=== PATIENT | female | born 1985 | race Caucasian/White ===

== ENCOUNTER 2021-07-01 09:52 | Emergency (ER) | payer MEDICAID, SELFPAY ==
[2021-07-01] VITALS (7 sets, daily range): BP systolic 92–113; BP diastolic 57–64; PULSE 67–90; RESP 15–19; TEMP 36.7; O2SAT 95–100; BMI 24.2
--- NOTE | 2021-07-01 10:45 | W.ED.ABDPA2 ---
HPI - Abdominal Pain General: Chief Complaint: Abdominal Pain Stated Complaint: RLQ ABD PAIN X 3 DAYS, N/V Time Seen by Provider: 07/01/21 10:44 History of Present Illness: HPI narrative: Patient is a 36-year-old female comes to the ED with abdominal pain. Patient has a past medical history of hepatitis C. Patient says the pain started approximately 3 days ago and in first the pain was located around the navel. The pain is now moved to the right lower quadrant of her abdomen. Pain is rated an 8 out of 10. She says she has not had much of an appetite for the past couple days. She endorses having some nausea and vomiting as well. She vomited approximately 3-4 times yesterday. Denies any fever but does states she had chills today. Denies any chest pain, shortness of breath, vaginal discharge, Bladder or bowel symptoms. Associated Symptoms: Reports chills, nausea and vomiting; Denies constipation, diarrhea, dysuria, fever(s), hematochezia and hematuria Review of Systems Const: Reports: chills and change in appetite (Decreased); Denies: fever(s) or fatigue Eyes: Denies: change in vision or eye discomfort ENMT: Denies: throat pain, odynophagia, nasal discharge or nasal congestion Card: Denies: chest pain, palpitations, edema, swelling of feet/ankles, dyspnea on exertion or orthopnea Resp: Denies: dyspnea, productive cough or non-productive cough GI: Reports: abdominal pain, nausea and vomiting; Denies: diarrhea, constipation or hematochezia : Denies: flank pain, dysuria or hematuria Musc: Denies: neck pain, back pain or extremity swelling Skin/Breast: Denies: rash or new lesions Neuro: Denies: headache(s), numbness in extremities or weakness in extremities PFSH ED PFSH: Medical History Hepatitis C Physical Exam Const: COMMON NORMALS: no acute distress, patient oriented x3 and alert GENERAL APPEARANCE: cooperative and comfortable HENMT: COMMON NORMALS: normocephalic HEAD & SCALP: normocephalic MOUTH: Normal oral and palatal mucosa present THROAT: posterior oropharynx normal and uvula midline Eye: COMMON NORMALS: Equal, round and reactive pupils present PUPIL: Yes Equal, round and reactive pupils present Neck/C-Spine: COMMON NORMALS: supple GENERAL: Yes normal visual inspection Resp: COMMON NORMALS: normal respiratory effort, No retractions, No use of accessory muscles and clear to auscultation bilaterally AUSCULTATION: clear to auscultation bilaterally Cardio: COMMON NORMALS: regular rate, regular rhythm, S1 normal heart sound present, S2 normal heart sound present, No gallops present (Cardio), No clicks present (Cardio), No murmurs present (Cardio) and Peripheral pulses 2+ throughout RATE: regular rate RHYTHM: regular rhythm HEART SOUNDS: S1 normal heart sound present and S2 normal heart sound present PERIPHERAL PULSES: Peripheral pulses 2+ throughout GI: COMMON NORMALS: Normal to inspection, nondistended, normoactive bowel sounds present, Soft to palpation and no masses PALPATION: Yes Soft to palpation and Yes Tenderness to palpation present (GI) Details: RLQ (Positive McBurney's point tenderness) and RUQ : COMMON NORMALS: Yes no CVA tenderness BLADDER/KIDNEY EXAM: Yes no CVA tenderness Back/Pelvis: COMMON NORMALS: no CVA tenderness Extremity: COMMON NORMALS: normal to inspection Neuro: COMMON NORMALS: patient oriented x3 SENSORIUM/ORIENTATION: Yes alert GAIT: Yes Normal gait present Skin: GENERAL SKIN EXAM: dry skin Course Vital Signs: Vital signs: Vital Signs Temperature 98.1 F 07/01/21 10:03 Pulse Rate 67 07/01/21 15:46 Respiratory Rate 15 07/01/21 15:46 Blood Pressure 96/59 07/01/21 15:46 Pulse Oximetry 96 07/01/21 15:46 MDM - Abdominal Pain MDM Narrative: Medical decision making narrative: Patient is a 36-year-old female comes to the ED with abdominal pain. Patient has a past medical history of hepatitis C. vitals are stable. Exam shows a nontoxic appearing patient was appear to be in some discomfort and pain. She had tenderness to her right upper and right lower quadrant. Positive McBurney's point. AST 154 and ALT 200. The rest of labs were unremarkable. CT abdomen pelvis-largely distended gallbladder but no evidence of appendicitis noted. They recommended doing ultrasound of the gallbladder. The ultrasound showed no signs of cholecystitis and common bile duct was slightly enlarged at 5.1 mm. Patient's symptoms of pain and nausea were controlled with IV morphine, fluids and Zofran. She was diagnosed with pain in transaminitis. She was discharged home with a prescription for Zofran and hydrocodone for pain. She was told to start on a clear liquid diet and slowly advance as tolerated. She was told to follow-up with her PCP in 3 to 5 days to recheck liver enzyme levels. Return to ED precautions given. Patient stood agree with plan. Lab Data: Attestation: I reviewed the patient's lab results. Labs: Lab Results 07/01/21 07/01/21 07/01/21 Range/Units 10:50 12:25 12:25 WBC 5.1 (4.0-10.0) 10^3/ uL RBC 3.98 L (4.1-5.3) 10^6/u L Hgb 12.2 (11.5-15.3) g/dL Hct 37.7 (37.0-47.0) % MCV 94.7 (81-99) fl MCH 30.7 (28.0-34.0) pg MCHC 32.4 (30.0-36.0) g/dL RDW 12.9 (12.1-15.1) % Plt Count 204 (130-400) 10^3/c mm MPV 9.4 (7.4-10.4) fL Neut % (Auto) 46.2 % Lymph % (Auto) 39.7 % [place] % (Auto) 11.7 % Eos % (Auto) 1.6 % Baso % (Auto) 0.6 % Neut # (Auto) 2.38 (1.8-7.7) 10^3/u L Lymph # (Auto) 2.0 (0.8-4.8) 10^3/u L [place] # (Auto) 0.6 (0.2-0.9) 10^3/u L Eos # (Auto) 0.1 (0.0-0.8) 10^3/u L Baso # (Auto) 0.0 (0.0-0.1) 10^3/u L Nucleated RBC % (a uto) 0 % Nucleated RBCs # 0.0 /100WBC Sodium 136 (136-145) mmol/L Potassium 4.1 (3.5-5.1) mmol/L Chloride 104 (98-107) mmol/L Carbon Dioxide 25 (22-29) mmol/L Anion Gap 11.1 (5-19) BUN 7 (6-20) mg/dL Creatinine 0.4 L (0.5-0.9) mg/dL GFR Calculation 182.7 H (90-130) mL/min Glucose 79 (65-115) mg/dL Calculated Osmolal ity 279 L (285-295) mOsm/k g Calcium 8.9 (8.5-10.5) mg/dL Total Bilirubin 0.5 (0.15-1.2) mg/dL AST 154 H (0-32) U/L ALT 200 H (0-33) U/L Alkaline Phosphata se 108 H (35-105) IU/L Total Protein 7.1 (6.6-8.7) g/dL Albumin 4.1 (3.5-5.2) g/dL Globulin 3.0 (1.3-4.6) g/dL Lipase 43 (13-60) U/L HCG, Qual (Negative) Urine Color Dark yellow (Yellow) Urine Appearance Cloudy (CLEAR) Urine pH 6 (5-7) Ur Specific Gravit y 1.020 (1.005-1.030) Urine Protein Neg (Negative) Urine Glucose (UA) Norm (Normal) Urine Ketones Negative (Negative) Urine Blood Neg (Negative) Urine Nitrate Negative (Negative) Urine Bilirubin Neg (Negative) Urine Urobilinogen Norm (Negative) mg/dL Ur Leukocyte Gracy ase Negative (Negative) Urine RBC 0-4 H (0-2) /hpf Urine WBC 0-4 H (0-5) /hpf Ur Squamous Epith Cells 10-15 H (0-5) /hpf Amorphous Sediment Not Reportable Urine Bacteria 1+ H (NONE) /hpf 07/01/21 Range/Units 12:25 WBC (4.0-10.0) 10^3/ uL RBC (4.1-5.3) 10^6/u L Hgb (11.5-15.3) g/dL Hct (37.0-47.0) % MCV (81-99) fl MCH (28.0-34.0) pg MCHC (30.0-36.0) g/dL RDW (12.1-15.1) % Plt Count (130-400) 10^3/c mm MPV (7.4-10.4) fL Neut % (Auto) % Lymph % (Auto) % [place] % (Auto) % Eos % (Auto) % Baso % (Auto) % Neut # (Auto) (1.8-7.7) 10^3/u L Lymph # (Auto) (0.8-4.8) 10^3/u L [place] # (Auto) (0.2-0.9) 10^3/u L Eos # (Auto) (0.0-0.8) 10^3/u L Baso # (Auto) (0.0-0.1) 10^3/u L Nucleated RBC % (a uto) % Nucleated RBCs # /100WBC Sodium (136-145) mmol/L Potassium (3.5-5.1) mmol/L Chloride (98-107) mmol/L Carbon Dioxide (22-29) mmol/L Anion Gap (5-19) BUN (6-20) mg/dL Creatinine (0.5-0.9) mg/dL GFR Calculation (90-130) mL/min Glucose (65-115) mg/dL Calculated Osmolal ity (285-295) mOsm/k g Calcium (8.5-10.5) mg/dL Total Bilirubin (0.15-1.2) mg/dL AST (0-32) U/L ALT (0-33) U/L Alkaline Phosphata se (35-105) IU/L Total Protein (6.6-8.7) g/dL Albumin (3.5-5.2) g/dL Globulin (1.3-4.6) g/dL Lipase (13-60) U/L HCG, Qual Negative (Negative) Urine Color (Yellow) Urine Appearance (CLEAR) Urine pH (5-7) Ur Specific Gravit y (1.005-1.030) Urine Protein (Negative) Urine Glucose (UA) (Normal) Urine Ketones (Negative) Urine Blood (Negative) Urine Nitrate (Negative) Urine Bilirubin (Negative) Urine Urobilinogen (Negative) mg/dL Ur Leukocyte Gracy ase (Negative) Urine RBC (0-2) /hpf Urine WBC (0-5) /hpf Ur Squamous Epith Cells (0-5) /hpf Amorphous Sediment Urine Bacteria (NONE) /hpf Imaging Data ^: CT Abd/Pel: Attestation: I personally reviewed and interpreted this imaging study as follows: Radiologist's impression: [address] [place] [address] CT Scan Report Signed Patient: Idania Villegas Unit #: [id number] : 1985 Age/Sex: 36 / F ADM Date: 07/01/21 Loc: ER Room/Bed: Attending Dr: Ordering Provider/Ordering MD: Kenny Smallwood Date of Service: 07/01/21 Procedure(s): CT abdomen pelvis w con* [id number] Accession Number(s): [id number] Report Number: [id number] WS: [id number] CT ABDOMEN PELVIS TECHNIQUE: Contrast-enhanced CT of the abdomen and pelvis with coronal and sagittal reformatted images. CLINICAL INFORMATION: RLQ pain, n/v COMPARISON: None. DLP: 797.[address] scans at [facility] use at least one of these dose optimization techniques: automated exposure control; mA and/or kV adjustment per patient size (includes targeted exams where dose is matched to clinical indication); or iterative reconstruction. FINDINGS: Hydropic fluid distended gallbladder. No gallbladder wall thickening or pericholecystic fluid. Suggestion of minimal intrahepatic biliary duct dilatation. Gallbladder can be further evaluated with ultrasound. Normal portal vein and splenic vein. Normal GE junction. Slight atelectasis in the lung bases. Adrenal glands are normal. Normal renal parenchymal enhancement. No hydronephrosis. Pancreas appears normal. Low-lying cecum in the right lower quadrant with fecal retention. Appendix is not definitely visualized.Moderate pancolonic fecal retention. No evidence of high-grade small or large bowel obstruction. Normal GE junction. 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 No significant anterolisthesis.Prominent pelvic varicosities in the pelvis. Right ovarian cyst measuring 1.5 x 1.7 cm. IMPRESSION: 1. Fluid distended hydropic gallbladder. This can be further evaluated with ultrasound. Suggestion of minimal intrahepatic biliary ductal dilatation. 2. Normal visualized common bile duct. 3. No hydronephrosis in either kidney. Normal renal parenchymal enhancement. 4. Moderate pancolonic constipation. 5. Low-lying cecum in the right lower quadrant. Appendix is not definitely visualized. 6. Prominent pelvic varicosities in the pelvis. Right ovarian cyst measuring 1.5 x 1.7 cm. 7. 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 No significant anterolisthesis. Dictated By: Dinesh Nguyen MD Signed By: Dinesh Nguyen MD Signed Date/Time: 07/01/21 1429 DD/ 1418 US: Attestation: I personally reviewed and interpreted this imaging study as follows: Radiologist's impression: [address] [address] Ultrasound Report Signed Patient: Idania Villegas Unit #: [id number] : 1985 Age/Sex: 36 / F ADM Date: 07/01/21 Loc: ER Room/Bed: Attending Dr: Ordering Provider/Ordering MD: Kenny Smallwood Date of Service: 07/01/21 Procedure(s): US gall bladder [id number] Accession Number(s): [id number] Report Number: [id number] WS: [id number] Exam: US gall bladder [id number] Date/Time of Exam: 07/01/2021 2:49 PM Reason For Exam: right side abdominal pain with n/v The gallbladder is prominent. No shadowing stones are identified. No sign of acute cholecystitis. The common bile duct measures 5.1 mm at greatest diameter. Normal-appearing right kidney measures 10.34 x 4.13 x 5 cm. The liver is unremarkable. The abdominal aorta is normal in caliber. The IVC is unremarkable in appearance. US/US gall bladder [id number] IMPRESSION: 1. Prominent gallbladder but no sign of cholelithiasis or acute cholecystitis. 2. Mild prominence of the common bile duct measuring 5.1 mm at greatest diameter. Dictated By: Guillermo Craig DO Signed By: Guillermo Craig DO Signed Date/Time: 07/01/21 1532 DD/ 1528 Discharge Plan Discharge Patient Disposition: Home Clinical Impression: Transaminitis Abdominal pain Qualifiers: Abdominal location: right lower quadrant Qualified Code(s): R10.31 - Right lower quadrant pain Condition: Stable Prescriptions: New ondansetron 4 mg tablet,disintegrating 4 mg PO Q8H PRN (Reason: nausea and vomiting) Qty: 15 RF: 0 No Action buspirone 10 mg tablet 20 mg PO BID RF: 0 buprenorphine-naloxone 8-2 mg tablet, sublingual 1 tab SUBLINGUAL BID RF: 0 Discharge Orders: Discharge ED (Routine); Ordered 07/01/21 Ordered By: Kenny Smallwood Referrals: Jennifer Carroll [Primary Care Provider] - Discharge Diet: Advance as tolerated and Clear Liquid Discharge Activity: Increase activity as tolerated Patient Instructions: Biliary Colic (ED), Clear Liquid Diet (ED), Abdominal Pain (ED) Activity Restrictions/Additional Instructions: Follow-up with medical provider as directed. Have your primary care physician recheck your liver enzyme labs in the next 3 to 5 days. Take medications as prescribed. Start with a clear liquid diet then slowly advance diet as tolerated. Return to the ER or your medical provider if condition worsens. Please read and understand discharge instructions. Thank you for choosing [facility] for your healthcare needs today. Please realize this is an emergency room and that we are providing you with a medical screening exam and this may not be complete and all inclusive of all the testing and or work up that you may need to determine your ailment or severity of your illness. It is very important that you follow up as instructed or that you return to the Emergency Department should you have concerns or if your condition changes or worsens in any way. Stand Alone Forms: Work/School Release Coding Level of Care Code ED Roster Clerk for Lorie Fwtim Exam Comprehensive
--- NOTE | 2021-07-01 10:58 | CT_ITS ---
WS: [id number] CT ABDOMEN PELVIS TECHNIQUE: Contrast-enhanced CT of the abdomen and pelvis with coronal and sagittal reformatted image s. CLINICAL INFORMATION: RLQ pain, n/v COMPARISON: None. DLP: 797.[address] scans at [facility] use at least one of these dose optimization techniques: automat ed exposure control; mA and/or kV adjustment per patient size (includes targeted exams where dose is matched to clinical indication); or iterative reconstruction. FINDINGS: Hydropic fluid distended gallbladder. No gallbladder wall thickening or pericholecystic fluid. Sugges tion of minimal intrahepatic biliary duct dilatation. Gallbladder can be further evaluated with ultra sound. Normal portal vein and splenic vein. Normal GE junction. Slight atelectasis in the lung bases. Adrenal glands are normal. Normal renal parenchymal enhancement. No hydronephrosis. Pancreas appears normal. Low-lying cecum in the right lower quadrant with fecal retention. Appendix is not definitely visualiz ed.Moderate pancolonic fecal retention. No evidence of high-grade small or large bowel obstruction. N ormal GE junction. 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 No significant anterolisthesis.Prominent pelvic varic osities in the pelvis. Right ovarian cyst measuring 1.5 x 1.7 cm. IMPRESSION: 1. Fluid distended hydropic gallbladder. This can be further evaluated with ultrasound. Suggestion o f minimal intrahepatic biliary ductal dilatation. 2. Normal visualized common bile duct. 3. No hydronephrosis in either kidney. Normal renal parenchymal enhancement. 4. Moderate pancolonic constipation. 5. Low-lying cecum in the right lower quadrant. Appendix is not definitely visualized. 6. Prominent pelvic varicosities in the pelvis. Right ovarian cyst measuring 1.5 x 1.7 cm. 7. 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 No significant anterolisthesis.
[2021-07-01 11:27] LABS: Bacteria Urine 1+ /hpf; Bilirubin Urine Neg (Negative); Blood Urine Neg (Negative); Glucose Urine UA Norm (Normal); Ketones Urine Negative (Negative); Leukocyte Esterase Urine Negative (Negative); Nitrate Urine Negative (Negative); Protein Urine Neg (Negative); RBC Urine 0-4 /hpf (0-2); Urine Appearance Cloudy (CLEAR); Urine Color Dark Yellow (Yellow); Urobilinogen Urine Norm (Negative); WBC Urine 0-4 /hpf (0-5); pH Urine 6 (5-7)
[2021-07-01] MEDS: sodium chloride 0.9% 1,000 ML 999 ML IV (12:25)
[2021-07-01] MEDS: ondansetron 2 mg/ML SDV 2 mL 4 MG IVP (12:26)
[2021-07-01] MEDS: morphine 4 mg/mL SDV 1 mL IVP (12:26)
[2021-07-01 12:36] LABS: Basophils % 0.6 %; Eosinophils # 0.1 10^3/uL (0.0-0.8); Eosinophils % 1.6 %; Hematocrit 37.7 % (37.0-47.0); Hemoglobin 12.2 g/dL (11.5-15.3); Lymphocytes % 39.7 %; Mean Corpuscular HGB Conc 32.4 g/dL (30.0-36.0); Mean Corpuscular Hemoglobin 30.7 pg (28.0-34.0); Mean Corpuscular Volume 94.7 fl (81-99); Mean Platelet Volume 9.4 fL (7.4-10.4); Monocytes # 0.6 10^3/uL (0.2-0.9); Monocytes % 11.7 %; Neutrophils # 2.38 10^3/uL (1.8-7.7); Neutrophils % 46.2 %; Nucleated Red Blood Cells % 0 %; Platelet Count 204 10^3/cmm (130-400); Red Blood Count 3.98 10^6/uL (4.1-5.3); Red Cell Distribution Width 12.9 % (12.1-15.1); White Blood Count 5.1 10^3/uL (4.0-10.0)
[2021-07-01 12:53] LABS: HCG, Serum Qual Negative (Negative)
[2021-07-01 13:01] LABS: Alanine Aminotransferase 200 U/L (0-33); Albumin Level 4.1 g/dL (3.5-5.2); Alkaline Phosphatase 108 IU/L (35-105); Anion Gap 11.1 (5-19); Aspartate Amino Transferase 154 U/L (0-32); Blood Urea Nitrogen 7 mg/dL (6-20); Calcium 8.9 mg/dL (8.5-10.5); Carbon Dioxide 25 mmol/L (22-29); Chloride 104 mmol/L (98-107); Glomerular Filtration Rate 182.7 mL/min (90-130); Glucose 79 mg/dL (65-115); Lipase 43 U/L (13-60); Osmolality Calculated 279 mOsm/kg (285-295); Potassium 4.1 mmol/L (3.5-5.1); Sodium 136 mmol/L (136-145); Total Bilirubin 0.5 mg/dL (0.15-1.2); Total Protein 7.1 g/dL (6.6-8.7)
[2021-07-01] MEDS: iohexol 300 mg/mL 100 mL Btl IV (13:09)
[2021-07-01] MEDS: morphine 4 mg/mL SDV 1 mL 2 MG IVP (13:59)
--- NOTE | 2021-07-01 14:43 | US_ITS ---
WS: [id number] Exam: US gall bladder [id number] Date/Time of Exam: 07/01/2021 2:49 PM Reason For Exam: right side abdominal pain with n/v The gallbladder is prominent. No shadowing stones are identified. No sign of acute cholecystitis. The common bile duct measures 5.1 mm at greatest diameter. Normal-appearing right kidney measures 10.34 x 4.13 x 5 cm. The liver is unremarkable. The abdominal aorta is normal in caliber. The IVC is unrema rkable in appearance. US/US gall bladder [id number] IMPRESSION: 1. Prominent gallbladder but no sign of cholelithiasis or acute cholecystitis. 2. Mild prominence of the common bile duct measuring 5.1 mm at greatest diamete r.
[2021-07-01] MEDS: HYDROcodone-acetaminophen 7.5-325 mg Tablet 1 TAB PO (16:23)
== END 2021-07-01 16:32 | disposition home or self-care (01) ==
PROVIDERS: Emergency Provider Physician Assistant; PCP Nurse Practitioner Family
DX: R10.31 Right lower quadrant pain (principal); R74.01 Elevation of levels of liver transaminase levels
CPT/HCPCS: 74177; 76705; 80053; 81001; 83690; 84703; 85025; 87040; 96361; 96374; 96375; 96376; 99284; J2270; J2405; J7030; Q9967

== ENCOUNTER → 2022-04-30 13:31 | Outpatient (BNVA) | payer MEDICAID, SELFPAY | PROVIDERS: PCP Nurse Practitioner Family; Visit Provider Nurse Practitioner Family | DX: G56.03 Carpal tunnel syndrome, bilateral upper limbs (principal); M79.642 Pain in left hand; M79.641 Pain in right hand | CPT/HCPCS: 73130; 99204 ==

== ENCOUNTER 2022-05-29 05:35 | Day surgery (SDC) | payer MEDICAID, SELFPAY ==
[2022-05-28 10:29] VITALS: BMI 27.3
[2022-05-29] VITALS (12 sets, daily range): BP systolic 107–135; BP diastolic 70–99; PULSE 67–91; RESP 10–18; TEMP 36.2–36.9; O2SAT 97–100
[2022-05-29] MEDS: cetylpyridinium Lozenge 1 EACH MUCOUS MEM (06:29)
--- NOTE | 2022-05-29 06:37 | ANES.PREANE2 ---
Pre-Anesthetic Assessment Height/Weight: Height 1.52 m Weight 63.503 kg Temp Pulse Resp BP Pulse Ox 98.2 F 84 18 119/70 98 05/29/22 05:53 05/29/22 05:53 05/29/22 05:53 05/29/22 05:53 05/29/22 05:53 Preop Diagnosis: Right carpal tunnel syndrome Operation Date: 05/29/22 07:00 Proposed Procedures p RIGHT CARPAL TUNNEL RELEASE 99102,G56.00(Right) - Marie Ha MD Familial anesthetic complications: None Was Beta Nilesh taken within 24 hours: N/A Was Clonidine taken within 24 hours: N/A Last intake: Intake Last Liquid Date 05/28/22 Last Liquid Time 22:30 Last Solid Date 05/28/22 Last Solid Time 22:30 Social Tobacco and No alcohol Exam alert, oriented x 3, clear to auscultation bilaterally and regular rate & rhythm Airway Mallampati: Class II Dentition: false Pulmonary None reported CV/HEM None reported None reported Hepatic None reported GI None reported Metabolic None reported Musc/skel None reported Neuropsych None reported Anesthetic Plan ASA status: 2 Risk of > 500 ml blood loss (7ml/kg in children): No Other Pertinent Information hx IV drugs abuse Medications/Allergies Home Medications Medication Instructions Recorded Confirmed Last Taken Type buprenorphine 8 mg-naloxone 2 mg 1 tab SUBLINGUAL BID 07/01/21 05/29/22 05/27/22 History sublingual tablet buspirone 10 mg tablet 20 mg PO BID 07/01/21 05/29/22 05/29/22 History Allergies Allergy/AdvReac Type Severity Reaction Status Date / Time No Known Allergies Allergy Verified 05/29/22 05:52 [facility] Anesthesia Medical History Hepatitis C Data Anesthesia Cardiac Studies: No Data to Display
[2022-05-29] MEDS: CELEcoxib 200 mg Capsule 400 MG PO (06:40)
[2022-05-29] MEDS: acetaminophen 1,000 MG/100 ML PIGGYBACK 400 MG IV (06:50)
[2022-05-29] MEDS: sodium chloride 0.9% 1,000 ML 30 ML IV (06:50)
--- NOTE | 2022-05-29 06:57 | P.HPUD_ITS ---
Surgery/Procedure H&P Update DATE OF PROCEDURE: May 29, 2022 DATE H&P PERFORMED: 04/30/22 H&P UPDATE INFORMATION: I have reviewed H&P completed within last 30 days, I have examined patient prior to procedure, No changes to prior documentation and [place] [facility] [place] date indicated PREOP DIAGNOSIS: Right carpal tunnel syndrome PLANNED PROCEDURE: Operation Date: 05/29/22 07:00 Proposed Procedures p RIGHT CARPAL TUNNEL RELEASE 46062,G56.00(Right) - Marie Ha MD Related Problem List Diagnoses (1) Carpal tunnel syndrome on right:
[2022-05-29] MEDS: ceFAZolin 2,000 MG in sodium chloride 0.9% (plus) 50 ML 100 MG IV (07:00)
--- NOTE | 2022-05-29 08:15 | P.OP_ITS ---
Operative Report Date of procedure: May 29, 2022 Pre-op diagnosis: Right carpal tunnel syndrome Post-op diagnosis: Right carpal tunnel syndrome Post-op findings: Compression across the median nerve Procedure done: Right carpal tunnel release Pathology: none sent Surgeon: Marie Ha Training Personnel Supervisor: None Anesthesia: General (LMA, ASA 2) Estimated blood loss (mL): 1 Tourniquet time (min): 24 (At 250 mmHg) IV fluids (mL): 400 Urine output (mL): 0 (No Xavier) Complications: None Findings: Compression across the median nerve Condition: stable Disposition: PACU (Then to same-day surgery for discharge home with family) Brief History: This 37-year-old woman presented to the orthopedic clinic with complaints of bilateral hand pain. She had had the discomfort for 5 years. 2 to 3 years ago, the patient had a nerve conduction study with Dr. De Souza that demonstrated signs of carpal tunnel. She continued to have worsening symptoms and wished to proceed with surgical intervention as she stated she could not feel her fingers at the time of her initial visit. Procedure: The patient was brought to the operating theater. She was administered a general anesthesia per LMA, ASA 2, secondary to poor IV access. The patient was also given Ancef 2 g preoperatively. The arm was then prepped and draped with DuraPrep in usual fashion with the arm draped free. A surgical pause was performed. At the time, the surgical pause, we confirmed the site and side of surgery. We also confirmed the patient's identity, appropriate and timely administration of preoperative antibiotics and preoperative surgical markings. An incision was then made along the thenar crease. The incision crossed the wrist joint in a curvilinear fashion. Dissection continued through skin and soft tissues using a scalpel. The palmaris longus was identified along with the transverse carpal ligament. Each of these was released carefully to avoid injury to the median nerve. We were able to dissect gently into the carpal canal which was noted to be quite tight with significant compression across the median nerve. The nerve was visualized and was an hourglass shape. The canal was subsequently palpated to assure there was no bony encroachment upon the canal. There was a quite thickened fibrous tissue within the canal, and this was opened longitudinally as well. The canal was then palpated distally and proximally to assure that my small finger was passed easily without impingement. Finding this to be so, attention was directed to closure. The wound was irrigated with ropivacaine plain. It was then closed with 3-0 nylon in an interrupted mattress fashion. Sterile dressing was then placed consisting of Dermabond, OpSite, fluffed fluffs, sterile soft roll, and an Henrry wrap. The tourniquet was released after 24 minutes. There were no complications. There were no specimens. The procedure was well tolerated. Plan is the patient will be discharged home. Related Problem List Diagnoses (1) Carpal tunnel syndrome on right:
[2022-05-29] MEDS: fentaNYL 50 mcg/mL INJ 2mL IVP (08:27)
--- NOTE | 2022-05-29 08:37 | SUR.PHASEI ---
07:58 RECEIVED PT FROM OR STAFF.RESPONSIVE TO VOICE . VENTILATING WELL. RIGHT ARM ELEVATED ON PILLOW. ROM AND SENSATION OF FINGERS OF RIGHT HAND. 08:27 MEDICATED FOR PAIN. 08:35 PT AT BEDSIDE TO FIT VELCRO SPLINT . MODERATE RELIEF OF PAIN.
[2022-05-29] MEDS: HYDROcodone-acetaminophen 5-325 mg Tablet 1 TAB PO (09:07)
--- NOTE | 2022-05-29 12:21 | ANE.PACU2 ---
Inpatient post-anesthesia follow up: Airway intact: Yes Vital signs: Temperature 98.4 F Pulse Rate 86 Respiratory Rate 18 Blood Pressure 124/82 Pulse Oximetry 98 Oxygen Delivery Me thod Room Air Oxygen Flow Rate 8 Fraction of Inspir ed Oxygen Hydration adequate: Yes Nausea and vomiting: No Pain level: 1 Mental status: Baseline
== END 2022-05-29 09:20 | disposition home or self-care (01) ==
PROVIDERS: PCP Nurse Practitioner Family; Visit Provider Specialist
PROC: (CPT 64721; principal; 2022-05-29 07:00)
DX: G56.01 Carpal tunnel syndrome, right upper limb (principal)
CPT/HCPCS: 64721; J1100; J2250; J2370; J2405; J2704; J3010; J3490; J7030

== ENCOUNTER → 2022-06-11 08:25 | Outpatient (BNVA) | payer MEDICAID, SELFPAY | PROVIDERS: PCP Nurse Practitioner Family; Visit Provider Nurse Practitioner Family | DX: Z98.890 Other specified postprocedural states (principal) | CPT/HCPCS: 99024 ==

== ENCOUNTER 2023-10-18 09:17 | Emergency (ER) | payer MEDICAID, SELFPAY ==
[2023-10-18 09:33] VITALS: BP 110/70; PULSE 96; RESP 16; TEMP 36.3; O2SAT 98; BMI 25.4
[2023-10-18 09:59] VITALS: BP 110/70; PULSE 81; RESP 18; O2SAT 98
--- NOTE | 2023-10-18 10:08 | W.ED.ABDPA2 ---
HPI - Abdominal Pain General: Chief Complaint: Abdominal Pain Stated Complaint: abd pain Time Seen by Provider: 10/18/23 09:37 Source: patient Mode of arrival: ambulatory History of Present Illness: 38-year-old female who presents to the emergency room with complaint of right lower quadrant abdominal pain exquisitely tender with any movement. Bowels and bladder been normal denies any dysuria urgency or frequency or hematuria. Started initially in right flank radiated down to the right lower quadrant now localizes there. She is extremely uncomfortable in the right over she denies any bumps or irregularities in the road. Previous hysterectomy and C-sections she still has a gallbladder and her appendix intact. No fever sweats or chills at home has been very nauseous but no vomiting MD elicited complaint: abdominal pain Pertinent past history: none Location: R flank Quality: sharp Radiation: RLQ Exacerbating factors: movement and other (Palpation) Relieving factors: nothing Associated Symptoms: Denies anorexia, belching, bloating, change in bowel habits, change in stool character, chills, coffee ground emesis, constipation, GI cramping, diarrhea, dyspepsia, dysuria, excessive flatus, fever(s), heartburn, hematochezia, hematuria, hematemesis, fecal incontinence, loose stools, melena, nausea, poor appetite, syncope and vomiting Review of Systems Const: Denies: fever(s) or chills Card: Denies: syncope GI: Denies: nausea, vomiting, hematemesis, coffee ground emesis, heartburn, diarrhea, constipation, bloating, GI cramping, belching, excessive flatus, fecal incontinence, change in bowel habits, change in stool character, hematochezia or melena : Denies: dysuria or hematuria PFS ED PFSH: Medical History Hepatitis C Course Vital Signs: Vital signs: Vital Signs Temperature 97.3 F L 10/18/23 09:33 Pulse Rate 81 10/18/23 09:59 Respiratory Rate 18 10/18/23 09:59 Blood Pressure 110/70 10/18/23 09:59 Pulse Oximetry 98 10/18/23 09:59 Oxygen Delivery Me thod Room Air 10/18/23 09:59 MDM - Abdominal Pain Medical Decision Making Labs and imaging reviewed no leukocytosis no significant lab abnormalities CT shows significant constipation magnesium citrate until relieved encouraged to take Colace or Janiya-Colace to prevent constipation in the future another option would be scheduled doses of MiraLAX daily Medical Records I reviewed the patient's medical records. Lab Data I reviewed the patient's lab results. 10/18/23 10:04 10/18/23 10:04 Labs/Radiology: Laboratory Results WBC 6.48 10^3/uL (3.29-11.43) 10/18/23 10:04 RBC 4.43 10^6/uL (3.85-5.65) 10/18/23 10:04 Hgb 13.60 g/dL (11.27-16.99) 10/18/23 10:04 Hct 41.4 % (36-47) 10/18/23 10:04 MCV 93.5 fl (85-98) 10/18/23 10:04 MCH 30.7 pg (27-33) 10/18/23 10:04 MCHC 32.9 g/dL (30-55) 10/18/23 10:04 RDW 11.8 % (12.1-15.1) L 10/18/23 10:04 Plt Count 250 10^3/cmm (157-399) 10/18/23 10:04 MPV 9.5 fL (7.4-10.4) 10/18/23 10:04 Neut % (Auto) 59.8 % 10/18/23 10:04 Lymph % (Auto) 29.8 % 10/18/23 10:04 [place] % (Auto) 7.4 % 10/18/23 10:04 Eos % (Auto) 1.9 % 10/18/23 10:04 Baso % (Auto) 0.8 % 10/18/23 10:04 Neut # (Auto) 3.88 10^3/uL (1.8-7.7) 10/18/23 10:04 Lymph # (Auto) 1.9 10^3/uL (0.8-4.8) 10/18/23 10:04 [place] # (Auto) 0.5 10^3/uL (0.2-0.9) 10/18/23 10:04 Eos # (Auto) 0.1 10^3/uL (0.0-0.8) 10/18/23 10:04 Baso # (Auto) 0.1 10^3/uL (0.0-0.1) 10/18/23 10:04 Nucleated RBC % (auto) 0 % 10/18/23 10:04 Nucleated RBCs # 0.0 /100WBC 10/18/23 10:04 Sodium 138 mmol/L (136-145) 10/18/23 10:04 Potassium 4.9 mmol/L (3.5-5.1) 10/18/23 10:04 Chloride 103 mmol/L (98-107) 10/18/23 10:04 Carbon Dioxide 23 mmol/L (22-29) 10/18/23 10:04 Anion Gap 16.9 (5-19) 10/18/23 10:04 BUN 8 mg/dL (6-20) 10/18/23 10:04 Creatinine 0.5 mg/dL (0.5-0.9) 10/18/23 10:04 GFR Calculation 139.6 mL/min (90-130) H 10/18/23 10:04 Glucose 90 mg/dL (65-115) 10/18/23 10:04 Calculated Osmolality 284 mOsm/kg (285-295) L 10/18/23 10:04 Calcium 10.3 mg/dL (8.5-10.5) 10/18/23 10:04 Total Bilirubin 0.6 mg/dL (0.15-1.2) 10/18/23 10:04 AST 26 U/L (0-32) 10/18/23 10:04 ALT 12 U/L (0-33) 10/18/23 10:04 Alkaline Phosphatase 83 U/L (35-105) 10/18/23 10:04 Total Protein 8.3 g/dL (6.6-8.7) 10/18/23 10:04 Albumin 5.2 g/dL (3.5-5.2) 10/18/23 10:04 Globulin 3.1 g/dL (1.3-4.6) 10/18/23 10:04 Lipase 25 U/L (13-60) 10/18/23 10:04 HCG, Qual Negative (Negative) 10/18/23 10:04 Urine Color Yellow (Yellow) 10/18/23 10:04 Urine Appearance Clear (CLEAR) 10/18/23 10:04 Urine pH 8 (5-7) H 10/18/23 10:04 Ur Specific [place] 1.020 (1.005-1.030) 10/18/23 10:04 Urine Protein Trace (Negative) 10/18/23 10:04 Urine Glucose (UA) Norm (Normal) 10/18/23 10:04 Urine Ketones Negative (Negative) 10/18/23 10:04 Urine Blood 2+ (Negative) H 10/18/23 10:04 Urine Nitrate Negative (Negative) 10/18/23 10:04 Urine Bilirubin Neg (Negative) 10/18/23 10:04 Prot Sulfosalicylic Acd Positive (Negative) 10/18/23 10:04 Urine Urobilinogen 1 mg/dL (Negative) H 10/18/23 10:04 Ur Leukocyte Esterase Negative (Negative) 10/18/23 10:04 Urine RBC 0-4 /hpf (0-2) H 10/18/23 10:04 Urine WBC None /hpf (0-5) 10/18/23 10:04 Ur Squamous Epith Cells 0-4 /hpf (0-5) H 10/18/23 10:04 Amorphous Sediment Not Reportable 10/18/23 10:04 Urine Bacteria Trace /hpf (NONE) 10/18/23 10:04 All radiology interpretation(s) finalized by discharge Discharge Plan Discharge Patient Disposition: Home Clinical Impression: Constipation Condition: Stable Prescriptions: New magnesium citrate Solution 150 ml PO BID PRN (Reason: constipation) Qty: 296 0RF Rx Instructions: Repeat until adequate results achieved No Action buprenorphine-naloxone 8-2 mg tablet, sublingual 1 tab SUBLINGUAL BID amitriptyline 25 mg tablet 50 mg PO BEDTIME Discharge Orders: Discharge ED (Routine); Ordered 10/18/23 Ordered By: Ned Ludwig Referrals: Jennifer Carroll [Primary Care Provider] - Discharge Diet: Clear Liquid Discharge Activity: Increase activity as tolerated Patient Instructions: Constipation (ED), Opioid Safety, Pain Management Activity Restrictions/Additional Instructions: Thank you for choosing [facility] for your healthcare needs today. Please realize this is an emergency room and that we are providing you with a medical screening exam and this may not be complete and all inclusive of all the testing and or work up that you may need to determine your ailment or severity of your illness. It is very important that you follow up as instructed or that you return to the Emergency Department should you have concerns or if your condition changes or worsens in any way. Coding Level of Care Code ED Administrative Services Specialist for Lorie Stein
--- NOTE | 2023-10-18 10:14 | CT_ITS ---
WS: [id number] CT ABDOMEN PELVIS TECHNIQUE: Contrast-enhanced CT of the abdomen and pelvis with coronal and sagittal reformatted image s. CLINICAL INFORMATION: abd pain COMPARISON: None. DLP: 364.[address] scans at [facility] use at least one of these dose optimization techniques: automated e xposure control; mA and/or kV adjustment per patient size (includes targeted exams where dose is matc hed to clinical indication); or iterative reconstruction. FINDINGS: Lung bases are well aerated. Mild diffuse fatty infiltration of the liver. Normal portal ve in and splenic vein. Normal spleen. Normal GE junction. Normal gallbladder. Urine distended bladder. Diffuse moderate pancolonic constipation. Sigmoid constipation. Appendix is not visualized. Low-lying cecum in the RIGHT lower quadrant. Adrenal glands are normal. Normal renal parenchymal enhancement. Hydronephrosis. Tiny fat-containing umbilical hernia. Normal caliber abdominal aorta. Stable appearing pelvic varicosities. RIGHT ovarian cyst measuring 2.2 cm. Multi follicular ovaries b ilaterally. No other suspicious findings. Slight anterolisthesis L4 on L5 with chronic bilateral pars defects. IMPRESSION: 1. Moderate diffuse pancolonic constipation. Rectosigmoid constipation. Prominent pelvic varicositie s unchanged compared to previous. 2. 2.2 cm RIGHT ovarian cyst. 3. Prior hysterectomy. 4. Slight anterolisthesis L4 on L5 with chronic bilateral pars defects. 5. No other acute findings.
[2023-10-18] MEDS: sodium chloride 0.9% 1,000 ML 999 ML IV (10:49)
[2023-10-18 10:52] LABS: Basophils # 0.1 10^3/uL (0.0-0.1); Basophils % 0.8 %; Eosinophils # 0.1 10^3/uL (0.0-0.8); Eosinophils % 1.9 %; Hematocrit 41.4 % (36-47); Lymphocytes # 1.9 10^3/uL (0.8-4.8); Lymphocytes % 29.8 %; Mean Corpuscular HGB Conc 32.9 g/dL (30-55); Mean Corpuscular Hemoglobin 30.7 pg (27-33); Mean Corpuscular Volume 93.5 fl (85-98); Mean Platelet Volume 9.5 fL (7.4-10.4); Monocytes # 0.5 10^3/uL (0.2-0.9); Monocytes % 7.4 %; Neutrophils # 3.88 10^3/uL (1.8-7.7); Neutrophils % 59.8 %; Nucleated Red Blood Cells % 0 %; Platelet Count 250 10^3/cmm (157-399); Red Blood Count 4.43 10^6/uL (3.85-5.65); Red Cell Distribution Width 11.8 % (12.1-15.1); White Blood Count 6.48 10^3/uL (3.29-11.43)
[2023-10-18 11:23] LABS: HCG, Serum Qual Negative (Negative)
[2023-10-18 11:25] LABS: Alanine Aminotransferase 12 U/L (0-33); Albumin Level 5.2 g/dL (3.5-5.2); Alkaline Phosphatase 83 U/L (35-105); Blood Urea Nitrogen 8 mg/dL (6-20); Calcium 10.3 mg/dL (8.5-10.5); Carbon Dioxide 23 mmol/L (22-29); Chloride 103 mmol/L (98-107); Globulin 3.1 g/dL (1.3-4.6); Glomerular Filtration Rate 139.6 mL/min (90-130); Glucose 90 mg/dL (65-115); Lipase 25 U/L (13-60); Osmolality Calculated 284 mOsm/kg (285-295); Sodium 138 mmol/L (136-145); Total Bilirubin 0.6 mg/dL (0.15-1.2); Total Protein 8.3 g/dL (6.6-8.7)
[2023-10-18] MEDS: iohexol 350 mg/mL 500 mL Btl (per mL) IV (11:34)
[2023-10-18 11:37] LABS: Add Urine Microscopic? YES; Bilirubin Urine Neg (Negative); Blood Urine 2+ (Negative); Glucose Urine UA Norm (Normal); Ketones Urine Negative (Negative); Leukocyte Esterase Urine Negative (Negative); Nitrate Urine Negative (Negative); Protein Urine Trace (Negative); RBC Urine 0-4 /hpf (0-2); Sulfosalicylic Acid Urine Positive (Negative); Urine Appearance Clear (CLEAR); Urine Color Yellow (Yellow); Urobilinogen Urine 1 mg/dL (Negative); pH Urine 8 (5-7)
[2023-10-18 11:38] LABS: Add Urine Culture? No; Bacteria Urine TRACE /hpf; Squamous Epithelial Cell Urine 0-4 /hpf (0-5)
[2023-10-18 11:51] LABS: Anion Gap 16.9 (5-19); Potassium 4.9 mmol/L (3.5-5.1)
[2023-10-18 11:52] LABS: Aspartate Amino Transferase 26 U/L (0-32)
[2023-10-18 12:12] VITALS: BP 97/65; PULSE 95; O2SAT 98
[2023-10-18 12:23] VITALS: BP 97/65; PULSE 95; O2SAT 98
== END 2023-10-18 12:29 | disposition home or self-care (01) ==
PROVIDERS: Emergency Provider Family Medicine; PCP Nurse Practitioner Family
DX: K59.00 Constipation, unspecified (principal); Z86.19 Personal history of other infectious and parasitic diseases
CPT/HCPCS: 74177; 80053; 81001; 83690; 84703; 85025; 96360; 96361; 99285; J7030; Q9967

== ENCOUNTER → 2024-11-29 14:24 | Outpatient (BNVA) | payer MEDICAID, SELFPAY | PROVIDERS: PCP Nurse Practitioner Family; Visit Provider Specialist | DX: M25.561 Pain in right knee (principal); M25.562 Pain in left knee; G89.29 Other chronic pain | CPT/HCPCS: 73560; 73565 ==